=== PATIENT | female | born 1960 | race Caucasian/White ===

== ENCOUNTER → 2017-11-08 03:14 | Outpatient (CLI) | payer MEDICAID, SELFPAY ==
[2017-11-08 16:23] LABS: ALT 18 U/L (12-78); AST 20 U/L (15-37); Albumin 4.4 g/dL (3.4-5.0); Alkaline Phosphatase 64 U/L (46-116); Anion Gap 7.2 mmol/L (3-11); BUN 14 mg/dL (7-18); Bilirubin, Total 0.4 mg/dL (0.2-1.0); CO2 29.8 mmol/L (21.0-32.0); CREATININE 0.78 mg/dL (0.55-1.02); Calcium 9.6 mg/dL (8.5-10.1); Chloride 103 mmol/L (98-107); Glucose 85 mg/dL (70-100); Potassium 4.7 mmol/L (3.5-5.1); Sodium 140 mmol/L (136-145); TSH (W/Ref FT4) 1.75 uIU/mL (0.358-3.74); Total Protein 7.4 g/dL (6.4-8.2)
[2017-11-09 11:26] LABS: HIV-1/2 Ag & Ab Screen Negative (NEGAT)
[2017-11-09 11:47] LABS: Hepatitis C Ab w Rflx HCV PCR Negative (NEGAT)
[2017-11-09 13:10] LABS: Syphilis Serology (RPR) Negative (Negative)
[2017-11-09 19:03] LABS: HBV DNA Detect/Quant, PCR Undetected IU/mL (Undetected)
== END ==
DX: F32.9 Major depressive disorder, single episode, unspecified (principal); F41.9 Anxiety disorder, unspecified; Z11.3 Encounter for screening for infections with a predominantly sexual mode of transmission; Z11.59 Encounter for screening for other viral diseases; Z11.4 Encounter for screening for human immunodeficiency virus [HIV]; M25.561 Pain in right knee; M25.562 Pain in left knee; N89.8 Other specified noninflammatory disorders of vagina; Z12.4 Encounter for screening for malignant neoplasm of cervix; Z11.51 Encounter for screening for human papillomavirus (HPV)
CPT/HCPCS: 36415; 80053; 86803; 87389; 87491; 87517; 87591; 88142; 84443; 86592; 87480; 87510; 87624; 87660

== ENCOUNTER → 2017-11-08 15:53 | Outpatient (REF) | payer MEDICAID, SELFPAY ==
--- NOTE | 2017-11-08 13:30 | PAPFT_PTH ---
PATIENT: Gaby Rousseau LOC: [facility] U#:[id number] AGE/SX: 64/F ROOM: RE11/08/[address]: Norma Silver APRN : 1960 BED: DIS: SPEC #: [id number] RECD: 11/09/17 13:06 STATUS: TAVON BISHOP #: [id number] DEBBIE: 11/08/17 13:[address]: Norma Silver DEPT: [facility] Cytology RECD BY: Kay Mccoy Tissues: 1 - CX/ENDOCX FOR PAP SMEARS Procedures: PAP THIN PREP/UVM Screening HPV DNA PROBE Comments: [id number] (CHLAMYDIA/GC)
[2017-11-10 14:52] LABS: Chlamydia Result Negative; GC Result Negative; Specimen Description SEE COMMENTS
== END ==
LOC: LBN 15:53
DX: N89.8 Other specified noninflammatory disorders of vagina (principal); Z12.4 Encounter for screening for malignant neoplasm of cervix; Z11.51 Encounter for screening for human papillomavirus (HPV)
CPT/HCPCS: 87480; 87510; 87660

== ENCOUNTER 2019-10-15 13:05 | Outpatient (CLI) | payer MEDICAID, SELFPAY ==
[2019-10-17 14:40] LABS: SARS-CoV-2 RNA Undetected (Undetected); SARS-CoV-2 Specimen Source Nasopharynx
== END 2019-10-15 13:25 ==
DX: Z11.59 Encounter for screening for other viral diseases (principal)
CPT/HCPCS: U0003

== ENCOUNTER 2019-11-25 03:30 | Outpatient (CLI) | payer MEDICAID, SELFPAY ==
[2019-11-25 09:39] LABS: ALT 18 U/L (14-59); AST 18 U/L (15-37); Albumin 4.1 g/dL (3.4-5.0); Alkaline Phosphatase 61 U/L (46-116); Anion Gap 7.7 mmol/L (3-11); BUN 12 mg/dL (7-18); Bilirubin, Total 0.5 mg/dL (0.2-1.0); CO2 29.3 mmol/L (21.0-32.0); CREATININE 0.85 mg/dL (0.55-1.02); Calcium 9.2 mg/dL (8.5-10.1); Chloride 104 mmol/L (98-107); Glucose 86 mg/dL (74-106); Potassium 4.2 mmol/L (3.5-5.1); Sodium 141 mmol/L (136-145); Total Protein 6.8 g/dL (6.4-8.2)
== END 2019-11-25 03:50 ==
DX: F32.9 Major depressive disorder, single episode, unspecified (principal); F41.9 Anxiety disorder, unspecified
CPT/HCPCS: 36415; 80053

== ENCOUNTER 2019-12-10 21:38 | Outpatient (REF) | payer MEDICAID, SELFPAY ==
[2019-12-12 15:22] LABS: Chlamydia Result Negative (Negative); GC Result Negative (Negative)
== END 2019-12-10 21:58 ==
LOC: LBN 21:38
DX: Z11.3 Encounter for screening for infections with a predominantly sexual mode of transmission (principal)
CPT/HCPCS: 87491; 87591

== ENCOUNTER 2020-12-11 00:47 | Outpatient (CLI) | payer MEDICAID, SELFPAY ==
[2020-12-11 12:57] LABS: ALT 106 U/L (14-59); AST 61 U/L (15-37); Alkaline Phosphatase 62 U/L (46-116); Anion Gap 7.3 mmol/L (3-11); BUN 15 mg/dL (7-18); Bilirubin, Total 0.5 mg/dL (0.2-1.0); CO2 30.7 mmol/L (21.0-32.0); CREATININE 0.8 mg/dL (0.55-1.02); Calcium 9.4 mg/dL (8.5-10.1); Chloride 107 mmol/L (98-107); Glucose 83 mg/dL (74-106); Potassium 4.5 mmol/L (3.5-5.1); Sodium 145 mmol/L (136-145); Total Protein 6.8 g/dL (6.4-8.2)
== END 2020-12-11 00:48 | disposition home or self-care (01) ==
LOC: LOS 00:47
DX: Z01.818 Encounter for other preprocedural examination (principal)
CPT/HCPCS: 36415; 80053

== ENCOUNTER 2021-03-03 02:53 | Outpatient (CLI) | payer MEDICAID, SELFPAY ==
[2021-03-03 13:15] LABS: ALT 27 U/L (14-59); AST 26 U/L (15-37)
== END 2021-03-03 02:54 | disposition home or self-care (01) ==
LOC: LBO 02:53
DX: R79.89 Other specified abnormal findings of blood chemistry (principal)
CPT/HCPCS: 36415; 84450; 84460

== ENCOUNTER 2022-06-16 16:43 | Outpatient (REF) | payer MEDICAID, SELFPAY ==
[2022-06-18 12:41] LABS: Chlamydia Result Negative (Negative); GC Result Negative (Negative)
[2022-06-18 13:03] LABS: HIV-1/2 Ag & Ab Screen Negative (Negative)
[2022-06-20 09:22] LABS: Hepatitis B Surface Ag Negative (Negative)
[2022-06-20 10:08] LABS: Hepatitis C Ab w Rflx HCV PCR Negative (Negative)
[2022-06-20 10:47] LABS: Hep A Total Ab w Rflx IgM Negative (Negative)
[2022-06-20 11:06] LABS: Syphilis Serology (RPR) Negative (Negative)
[2022-06-20 11:09] LABS: HSV Type 1 Ab, IgG Positive (Negative); HSV Type 2 Ab, IgG Negative (Negative)
== END 2022-06-16 16:44 | disposition home or self-care (01) ==
LOC: LBN 16:43
PROVIDERS: PCP Family Medicine; Visit Provider Nurse Practitioner Family
DX: Z11.3 Encounter for screening for infections with a predominantly sexual mode of transmission (principal); Z20.2 Contact with and (suspected) exposure to infections with a predominantly sexual mode of transmission
CPT/HCPCS: 86709; 86803; 87340; 87389; 87491; 87591; 86592; 86695; 86696

== ENCOUNTER 2022-06-22 08:36 | Emergency (ER) | payer MEDICAID, SELFPAY ==
[2022-06-22 08:45] VITALS: BP 121/63; PULSE 94; RESP 18; TEMP 37.1; O2SAT 100
--- NOTE | 2022-06-22 10:31 | ED.GENADUL_ITS ---
Discharge Plan Disposition Patient Disposition: Home Discharge Details Clinical Impression: Exposure to body fluid Primary Care Provider: James Gonzalez ED Provider: Kay Potts Home Meds and New Rx's Prescriptions: New lorazepam [Ativan] 1 mg tablet 1 mg PO DAILY PRNQty: 7 0RF Discharge Instructions Additional Instructions: You will need a repeat hepatitis vaccine at 1 month and 6 months from today's date You will need repeat HIV at 6 weeks from the initial exposure, 12 weeks from the initial exposure, and 6 months from the initial exposure, you will need a repeat hepatitis B at 1 month and repeat hep C at 4 months Should you develop vaginal discharge, or with any new or worsening complaints, please return immediately to the emergency department for reassessment or follow-up with your primary care physician Your primary care physician will order your outpatient labs I am giving you several tablets of Ativan, that should not be combined with alcohol It is also an addictive medication so use it very sparingly Referrals: James Gonzalez MD [Primary Care Provider] - 1 week Medical Decision Making 62-year-old female presents with concern for possible STD exposure although had recent assessment 6 days ago and had negative work-up for hep B, hep C, and HIV, and syphilis Patient had negative gonorrhea and chlamydia She has not been sexually active since her initial exposure potentially She was diagnosed with HSV 1 She is not currently having any evidence of herpes infection I actually discussed the case with [facility] regarding whether or not to start postexposure prophylaxis as patient is out of the 96- hour., They do not recommend starting Pap prophylaxis at this time and instead recommended rechecking HIV at 6 weeks, 12 weeks, and 6 months, hep B at 1 to 2 months, hep C at 4 to 6 months She did start receiving her hep B vaccine series She will need a repeat dose at 1 month and at 6 months, she is aware of this She is also given several tablets of Ativan as she has been under a great deal of stress, we discussed the risk of addiction associated with this decision She will need close outpatient follow-up with primary care physician for outpatient laboratory testing Return precautions were reviewed and patient expressed understanding Medical Records Medical records reviewed: Yes I reviewed the patient's medical records. Lab Data Lab results reviewed: Yes I reviewed the patient's lab results. HPI General Date/Time Provider Initiated Documentation: 06/22/22 08:42 . HPI Narrative: This 62-year-old female presents with report of presents with report of potential STD exposure. Patient is in an open relationship with her partner and he reportedly had unprotected intercourse with another individual and she noticed after intercourse with him last week or 2 weeks ago now that she had some blood in his semen. She was concern for possible HIV exposure although she states that initially tested negative and was not initiated on postexposure prophylaxis as she was 7 days postexposure at time of initial presentation She denies any vaginal discharge. She has any fever or chills. She has a rash on her back which is not new. She was told that she has herpes type I. She has never been officially tested for this before. She also had additional diagnostic blood work at that time. She thinks her tetanus is up-to-date. She is unsure regarding hepatitis B vaccines. She states this was consensual. Related Data Home Medications Medication Instructions Recorded Confirmed lorazepam 1 mg tablet (Ativan) 1 mg PO DAILY PRN #7 tabs 06/22/22 Previous Rx's Medication Instructions Recorded lorazepam 1 mg tablet (Ativan) 1 mg PO DAILY PRN #7 tabs 06/22/22 Allergies Allergy/AdvReac Type Severity Reaction Status Date / Time Bleach (Sodium Hypochlorite) Allergy Intermediate Skin Verified 06/22/22 08:53 Irritation latex Allergy Intermediate Irritation Verified 06/22/22 08:53 bandaid Allergy Mild skin Uncoded 06/22/22 08:53 irritation General Stated Complaint: BodyFldExp IMANI: 4 PFSH All Active Problems (Updated 06/22/22 @ 11:26 by ANA Vazquez) Exposure to body fluid (Acute) Elevated liver function tests (Acute) Fibromyalgia (Acute) Dermatitis (Acute) Anxiety (Acute) Panic Depressive disorder (Acute) Knee pain, bilateral (Acute 06/12/14) Lumbago (Acute) right sciatica Lumbago with sciatica, right side (Acute) right sciatica Varicose veins of lower extremity (Acute) left leg Medical History (Updated 06/22/22 @ 11:26 by ANA Vazquez) Abnormal weight loss Actinic keratitis (07/27/17) Asymptomatic cholelithiasis Uterine leiomyoma Surgical History Biopsy of breast Left section (~1992) Hysterectomy, Laproscopic laser eye (~2005) Ligation of fallopian tube (~1992) Oophrectomy, Both Open Carpal Tunnel release Right Family History (Updated 12/11/20 @ 08:11 by Ruth Hoyt) Mother , 115's Diabetes Essential hypertension Heart disease Low blood sugar Neoplasm GENITAL Stroke Low blood pressure Father , 80's Diabetes Alcohol abuse Essential hypertension Hyperlipidemia Sister Diabetes Essential hypertension Psoriasis Sister Low blood sugar Psoriasis Multiple sclerosis Low blood pressure Brother Asthma Grandfather Stroke Grandfather Diabetes Essential hypertension Heart disease Grandmother Diabetes Essential hypertension Grandmother Diabetes Heart disease Daughter Asthma Maternal Aunt Neoplasm BREAST Social History (Updated 01/18/22 @ 12:27 by Carisa Green) Smoking/Tobacco Use Status: Never Smoking risk assessment performed?: Yes Alcohol Intake: current Alcohol Intake frequency: holidays/special occasions only Alcohol type: beer, wine and hard liquor Drug use: Occasionally Substance use type: marijuana Counseling given: No Counseling provided: none Caregiver/Support person: No Household members: significant other and other Details: daughter and grand daughter Housing: house Communication Needs: None Do you need help understanding health information?: Rarely Pets and animals: No Sexually active: Yes Do you think of yourself as: bisexual Current gender identity: female What is your relationship status?: living with partner How often do you talk on the phone with friends or family?: once per week How often do you get together with friends or relatives?: once per week Do you belong to any clubs or organized social groups?: yes Panel score (0-1 are the most socially isolated patients): 2 What type of physical activity do you participate in: walking and other Details: housekeeping,dancing Duration: 30-45 minutes/day Frequency: 5-6 times per week Rosa/Confucianism: Other Special rosa needs: No Seatbelt use: always Helmet use: No Drive intox or ride w/intox lift driver: No Exam Const General: cooperative, comfortable and no acute distress Resp Effort & Inspection: normal respiratory effort Cardio Rate: regular rate Neuro General: patient alert Course Vital Signs Vital signs: Vital Signs Temperature 37.1 C 06/22/22 08:45 Pulse 94 H 06/22/22 08:45 Respiratory Rate 18 06/22/22 08:45 Blood Pressure 121/63 06/22/22 08:45 Pulse Oximetry 100 06/22/22 08:45 Temperature 37.1 C 06/22/22 08:45 Temperature Source Skin 06/22/22 08:45 Pulse 94 H 06/22/22 08:45 Respiratory Rate 18 06/22/22 08:45 Respiratory Effort Normal 06/22/22 08:53 Blood Pressure 121/63 06/22/22 08:45 Blood Pressure Position Sitting 06/22/22 08:45 Pulse Oximetry 100 06/22/22 08:45 Oxygen Delivery Method Room Air 06/22/22 08:45 Oxygen Flow Rate 0 06/22/22 08:45 Pain Level 0 06/22/22 08:45 Lab/Test Results Lab/Test Results: Laboratory Tests Range/Units 06/22/22 06/22/22 06/22/22 08:42 08:42 08:42 WBC Cancelled RBC Cancelled Hgb Cancelled Hct Cancelled MCV Cancelled MCH Cancelled MCHC Cancelled RDW Cancelled Plt Count Cancelled MPV Cancelled Immature Gran % Cancelled Neutrophils % Cancelled Band Neutrophils % Cancelled Lymphocytes % Cancelled Atypical Lymphs % Cancelled Monocytes % Cancelled Eosinophils % Cancelled Basophils % Cancelled Metamyelocytes % Cancelled Myelocytes % Cancelled Promyelocytes % Cancelled Other Cells % Cancelled Nucleated RBC % Cancelled Absolute Neutrophils Cancelled Absolute Lymphocytes Cancelled Absolute Monocytes Cancelled Absolute Eosinophils Cancelled Absolute Basophils Cancelled RBC Morphology Cancelled Polychromasia Cancelled Hypochromasia Cancelled Poikilocytosis Cancelled Basophilic Stippling Cancelled Anisocytosis Cancelled Microcytosis Cancelled Macrocytosis Cancelled Spherocytes Cancelled Tear Drop Cells Cancelled Ovalocytes Cancelled Stomatocytes Cancelled [place] Bodies Cancelled [place] Cells/Echinocytes Cancelled Acanthocytes (Spur) Cancelled Schistocytes Cancelled Sodium Cancelled Potassium Cancelled Chloride Cancelled Carbon Dioxide Cancelled Anion Gap Cancelled BUN Cancelled Creatinine Cancelled Est GFR (CKD-EPI 2020) Cancelled Glucose Cancelled Calcium Cancelled Total Bilirubin Cancelled AST Cancelled ALT Cancelled Alkaline Phosphatase Cancelled Total Protein Cancelled Albumin Cancelled Syphilis Serology Hep Bs Antigen Cancelled Hepatitis C Antibody Cancelled Range/Units 06/22/22 08:42 WBC RBC Hgb Hct MCV MCH MCHC RDW Plt Count MPV Immature Gran % Neutrophils % Band Neutrophils % Lymphocytes % Atypical Lymphs % Monocytes % Eosinophils % Basophils % Metamyelocytes % Myelocytes % Promyelocytes % Other Cells % Nucleated RBC % Absolute Neutrophils Absolute Lymphocytes Absolute Monocytes Absolute Eosinophils Absolute Basophils RBC Morphology Polychromasia Hypochromasia Poikilocytosis Basophilic Stippling Anisocytosis Microcytosis Macrocytosis Spherocytes Tear Drop Cells Ovalocytes Stomatocytes [place] Bodies [place] Cells/Echinocytes Acanthocytes (Spur) Schistocytes Sodium Potassium Chloride Carbon Dioxide Anion Gap BUN Creatinine Est GFR (CKD-EPI 2020) Glucose Calcium Total Bilirubin AST ALT Alkaline Phosphatase Total Protein Albumin Syphilis Serology Cancelled Hep Bs Antigen Hepatitis C Antibody Cancelled
[2022-06-22] MEDS: Hepatitis B Virus Vaccine 20 MCG/ML VIAL IM (11:36)
== END 2022-06-22 11:39 | disposition home or self-care (01) ==
PROVIDERS: Emergency Provider Physician Assistant; PCP Family Medicine
DX: Z20.2 Contact with and (suspected) exposure to infections with a predominantly sexual mode of transmission (principal); Z77.21 Contact with and (suspected) exposure to potentially hazardous body fluids; Z23 Encounter for immunization
CPT/HCPCS: 80053; 86803; 87340; 90471; 99283; 85025; 86592; 99284